=== PATIENT | male | born 1990 | race Caucasian/White ===

== ENCOUNTER 2019-11-27 17:40 | Emergency (ER) | payer OTHER ==
[2019-11-27 17:50] VITALS: BP 130/66; PULSE 76
[2019-11-27] MEDS ORDERED: Orphenadrine 100 MG Tab.ER PO ONE (18:02)
[2019-11-27] MEDS ORDERED: Ketorolac 30 MG/ML SDV IM ONE (18:02)
--- NOTE | 2019-11-27 18:07 | EDM.PDOC ---
ED HPI GENERAL MEDICAL PROBLEM - General Chief Complaint: Back Pain or Injury Stated Complaint: BACK PAIN Time Seen by Provider: 11/27/19 17:44 Source of Information: Reports: Patient, RN Notes Reviewed History Limitations: Reports: No Limitations - History of Present Illness INITIAL COMMENTS - FREE TEXT/NARRATIVE: Patient is a 28-year-old male who presents to the ED for the evaluation of his lower back pain. He notes this to be in his right lower back, and this started at around 10 AM this morning. 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 He states that this is a sharp shooting pain, sometimes shoots down his right leg, but mostly feels like a stiffness in his right lower back. He notes it is hard to bend over, and twist without much pain. He did take 2 tablets of Motrin roughly 3 to 4 hours ago, and it seemed to help a little bit. He is not known to have any prior back injuries. Further denies any urinary symptoms like dysuria, frequency, urgency or incontinence, and has no numbness or tingling in his legs. He denies any other sick-like symptoms, fever/chills, cough/shortness of breath, nausea/vomiting/diarrhea. Right Lower Back Pain Score (Numeric/FACES): 5 - Related Data Allergies Allergy/AdvReac Type Severity Reaction Status Date / Time peanut Allergy Cannot Verified 11/27/19 17:50 Remember strawberry Allergy Cannot Verified 11/27/19 17:50 Remember Home Meds: Home Meds Ketorolac [Toradol] 10 mg PO TID PRN #9 tab 11/27/19 [Rx] Orphenadrine [Norflex] 100 mg PO BID PRN #20 tab 11/27/19 [Rx] Past Medical History Respiratory History: Reports: Asthma - Past Surgical History GI Surgical History: Reports: Hernia, Inguinal Social & Family History - Tobacco Use Smoking Status *Q: Never Smoker Second Hand Smoke Exposure: No - Caffeine Use Caffeine Use: Reports: None - Recreational Drug Use Recreational Drug Use: No ED ROS GENERAL - Review of Systems Review Of Systems: Comprehensive ROS is negative, except as noted in HPI. ED EXAM,LOWER BACK PAIN/INJURY - Physical Exam Exam: See Below Exam Limited By: No Limitations General Appearance: Alert, WD/WN, No Apparent Distress Respiratory/Chest: No Respiratory Distress, Lungs Clear, Normal Breath Sounds, No Accessory Muscle Use, Chest Non-Tender Cardiovascular: Normal Peripheral Pulses, Regular Rate, Rhythm, No Murmur Back Exam: Normal Inspection, Decreased Range of Motion (slightly decreased d/t pain and stiffness, there is mild muscle spasm noted to right lower back just superior to the iliac crest) Extremities: Normal Inspection, Normal Range of Motion, Normal Capillary Refill Neurological: Alert, Normal Mood/Affect, Normal Dorsiflexion, Normal Plantar Flexion, No Motor/Sensory Deficits, Straight Leg Raise (R), Other (pt has slightly sitffened gait, but otherwise walks okay.). No: Straight Leg Raise (L), Saddle Anesthesia Psychiatric: Normal Affect, Normal Mood Skin Exam: Warm, Dry, Intact, Normal Color, No Rash Course - Vital Signs Last Recorded V/S: Last Vital Signs Temp 98.1 F 11/27/19 17:47 Pulse 76 11/27/19 17:47 Resp 16 11/27/19 17:47 BP 130/66 11/27/19 17:47 Pulse Ox 100 11/27/19 17:47 - Orders/Labs/Meds Meds: Medications Discontinued Medications Generic Name Dose Route Start Last Admin Trade Name Sophia PRN Reason Stop Dose Admin Ketorolac Tromethamine 60 mg 11/27/19 18:02 11/27/19 18:07 Toradol IM 11/27/19 18:03 60 mg ONETIME ONE Administration Orphenadrine Citrate 100 mg 11/27/19 18:02 11/27/19 18:07 Norflex PO 11/27/19 18:03 100 mg ONETIME ONE Administration - Re-Assessments/Exams Free Text/Narrative Re-Assessment/Exam: 11/27/19 18:07 Patient presents to the ED for evaluation of his lower back pain. He will be given an injection of Toradol, and trialed on Norflex to see if this helps relieve some of his pain. We will likely send him with a few days of Toradol, and some Norflex, and have him switch to ibuprofen after the Toradol is finished. 11/27/19 18:31 Patient did receive some relief from the medications given. He will be discharged home with general recommendations and a few prescriptions. Departure - Departure Time of Disposition: 18:32 Disposition: Home, Self-Care 01 Condition: Good Clinical Impression: Low back pain Qualifiers: Chronicity: acute Back pain laterality: right Sciatica presence: without sciatica Qualified Code(s): M54.5 - Low back pain - Discharge Information *PRESCRIPTION DRUG MONITORING PROGRAM REVIEWED*: No *COPY OF PRESCRIPTION DRUG MONITORING REPORT IN PATIENT MONICA: No Prescriptions: Orphenadrine [Norflex] 100 mg PO BID PRN #20 tab PRN Reason: Spasms Ketorolac [Toradol] 10 mg PO TID PRN #9 tab PRN Reason: Pain Instructions: Back Exercises, [id number] Referrals: PCP,None [Primary Care Provider] - Forms: ED Department Discharge Additional Instructions: You have been evaluated in the ED for your low back pain. Please use ice/heat as tolerated to the affected area. You were given a prescription for Norflex, please take 1 tab 2 times a day as needed for further muscle spasms. You were given a prescription for a few tablets of Toradol (ketorolac) please take as directed, until gone, and then switch to ibuprofen or Tylenol. You may take Tylenol 500 mg or ibuprofen 600mg q6 hrs for pain relief. Please do so until you have a tolerable level of pain with activity. Do not exceed 4000mg Tylenol or 3200mg ibuprofen in a 24 hour time period. You may want to try chiropractic services, or heating pads as well to help provide further relief from the pain. Please return to ED if your symptoms should change or worsen. Sepsis Event Note (ED) - Evaluation Sepsis Screening Result: No Definite Risk - Focused Exam Vital Signs: Vital Signs Temp Pulse Resp BP Pulse Ox 11/27/19 17:47 98.1 F 76 16 130/66 100
== END 2019-11-27 18:40 | disposition home or self-care (01) ==
LOC: JD.ED 17:40
DX: M62.830 Muscle spasm of back (principal); J45.909 Unspecified asthma, uncomplicated; Z91.018 Allergy to other foods; Z91.010 Allergy to peanuts
CPT/HCPCS: 96372; 99283; A9270; J1885

== ENCOUNTER 2021-01-22 07:08 | Emergency (ER) | payer OTHER ==
[2021-01-22 07:27] VITALS: BP 138/91; PULSE 79
--- NOTE | 2021-01-22 07:31 | EDM.PDOC ---
ED HPI GENERAL MEDICAL PROBLEM - General Chief Complaint: Genitourinary Problem Stated Complaint: POST SURGERY PAIN Time Seen by Provider: 01/22/21 07:29 - History of Present Illness INITIAL COMMENTS - FREE TEXT/NARRATIVE: 30-year-old male presents the emergency room with right testicular and groin pain. This pain started sometime yesterday progressively getting worse. Patient has a history of having surgery to the scrotum and testicle within the last year for a undescended testes. Patient denies any fevers or chills. He has had no burning or frequency with urination. Patient is not aware of any triggering event. He is complaining of pretty significant pain at this time. Patient is not on any routine medications at this time. He is otherwise healthy other than some food allergies and had a reaction to a pain medication he thinks was Dilaudid. The patient has tolerated morphine in the past. Groin Pain Score (Numeric/FACES): 5 - Related Data Allergies Allergy/AdvReac Type Severity Reaction Status Date / Time peanut Allergy Severe Cannot Verified 01/22/21 07:27 Remember strawberry Allergy Severe Cannot Verified 01/22/21 07:27 Remember Home Meds: Home Meds Hydrocodone/Acetaminophen [HYDROcodone-Acetaminophen 5-325 MG] 1 - 2 each PO Q6H PRN #14 tab 01/22/21 [Rx] Naproxen [Naprosyn] 500 mg PO BID #20 tab 01/22/21 [Rx] Sulfamethoxazole/Trimethoprim [Bactrim Ds Tablet] 1 each PO BID #20 tablet 01/22/21 [Rx] Past Medical History Respiratory History: Reports: Asthma - Past Surgical History GI Surgical History: Reports: Hernia, Inguinal Social & Family History - Caffeine Use Caffeine Use: Reports: None ED ROS GENERAL - Review of Systems Review Of Systems: See Below Constitutional: Reports: No Symptoms Respiratory: Reports: No Symptoms Cardiovascular: Reports: No Symptoms GI/Abdominal: Reports: Abdominal Pain (Lower abdominal pain right) : Reports: Other (See history of present illness) Musculoskeletal: Reports: No Symptoms Skin: Reports: No Symptoms ED EXAM, GENERAL - Physical Exam Exam: See Below Exam Limited By: No Limitations General Appearance: Alert, Moderate Distress (From the pain) Head: Atraumatic, Normocephalic Neck: Normal Inspection, Supple, Non-Tender, Full Range of Motion Respiratory/Chest: No Respiratory Distress, Lungs Clear, Normal Breath Sounds Cardiovascular: Regular Rate, Rhythm, No Edema, No Murmur GI/Abdominal: Normal Bowel Sounds, Soft, Non-Tender, Other (He has pain in the right inguinal area but this does not extend into the abdomen.). No: Guarding, Rigid, Rebound (Male) Exam: Testicular Tenderness (R), Other (Swelling believed to be present mild erythema) Back Exam: Normal Inspection. No: CVA Tenderness (L), CVA Tenderness (R) Extremities: Normal Inspection, No Pedal Edema Neurological: Alert, Oriented, Normal Cognition Course - Vital Signs Last Recorded V/S: Last Vital Signs Temp 36.3 C 01/22/21 07:19 Pulse 79 01/22/21 07:19 Resp 18 01/22/21 07:19 BP 138/91 H 01/22/21 07:19 Pulse Ox 100 01/22/21 07:19 - Orders/Labs/Meds Orders: Active Orders 24 hr Category Date Time Status Lactated Ringers [Ringers, Lactated] 1,000 ml Med 01/22/21 07:45 Active IV ASDIRECTED Medication Orders Lactated Ringer's (Ringers, Lactated) 1,000 mls @ 125 mls/hr IV ASDIRECTED OBED Last Admin: 01/22/21 07:49 Dose: 125 mls/hr Documented by: EDILBERTO Labs: Laboratory Tests 01/22/21 01/22/21 01/22/21 Range/Units 07:40 07:45 07:45 WBC 6.31 (4.23-9.07) K/mm3 RBC 4.81 (4.63-6.08) M/mm3 Hgb 14.0 (13.7-17.5) gm/dl Hct 41.7 (40.1-51.0) % MCV 86.7 (79.0-92.2) fl MCH 29.1 (25.7-32.2) pg MCHC 33.6 (32.2-35.5) g/dl RDW Std Deviation 40.7 (35.1-43.9) fL Plt Count 208 (163-337) K/mm3 MPV 10.8 (9.4-12.3) fl Neut % (Auto) 60.8 (34.0-67.9) % Lymph % (Auto) 29.5 (21.8-53.1) % [place] % (Auto) 4.9 L (5.3-12.2) % Eos % (Auto) 4.1 (0.8-7.0) Baso % (Auto) 0.5 (0.1-1.2) % Neut # (Auto) 3.84 (1.78-5.38) K/mm3 Lymph # (Auto) 1.86 (1.32-3.57) K/mm3 [place] # (Auto) 0.31 (0.30-0.82) K/mm3 Eos # (Auto) 0.26 (0.04-0.54) K/mm3 Baso # (Auto) 0.03 (0.01-0.08) K/mm3 Sodium 141 (136-145) mEq/L Potassium 3.8 (3.5-5.1) mEq/L Chloride 106 (98-107) mEq/L Carbon Dioxide 27 (21-32) mEq/L Anion Gap 11.8 (5-15) BUN 19 H (7-18) mg/dL Creatinine 1.1 (0.7-1.3) mg/dL Est Cr Clr Drug Dosing 81.15 mL/min Estimated GFR (MDRD) > 60 (>60) mL/min BUN/Creatinine Ratio 17.3 (14-18) Glucose 109 H (70-99) mg/dL Calcium 8.7 (8.5-10.1) mg/dL Total Bilirubin 0.2 (0.2-1.0) mg/dL AST 18 (15-37) U/L ALT 31 (16-63) U/L Alkaline Phosphatase 49 (46-116) U/L Total Protein 7.2 (6.4-8.2) g/dl Albumin 4.1 (3.4-5.0) g/dl Globulin 3.1 gm/dL Albumin/Globulin Ratio 1.3 (1-2) Urine Color Yellow (Yellow) Urine Appearance Clear (Clear) Urine pH 7.0 (5.0-8.0) Ur Specific [place] > or = 1.030 (1.005-1.030) Urine Protein Negative (Negative) Urine Glucose (UA) Negative (Negative) Urine Ketones Negative (Negative) Urine Occult Blood Negative (Negative) Urine Nitrite Negative (Negative) Urine Bilirubin Negative (Negative) Urine Urobilinogen 0.2 (0.2-1.0) Ur Leukocyte Esterase Negative (Negative) Meds: Medications Generic Name Dose Route Start Last Admin Trade Name Sophia PRN Reason Stop Dose Admin Lactated Ringer's 1,000 mls @ 125 mls/hr 01/22/21 07:45 01/22/21 07:49 Ringers, Lactated IV 125 mls/hr ASDIRECTED OBED Administration Discontinued Medications Generic Name Dose Route Start Last Admin Trade Name Fredeandra PRN Reason Stop Dose Admin Ketorolac Tromethamine 15 mg 01/22/21 10:49 Ketorolac 15 Mg/Ml Sdv IVPUSH 01/22/21 10:50 ONETIME ONE Morphine Sulfate 4 mg 01/22/21 07:42 01/22/21 07:49 Morphine 4 Mg/Ml Syringe IVPUSH 01/22/21 07:43 4 mg ONETIME ONE Administration - Re-Assessments/Exams Free Text/Narrative Re-Assessment/Exam: 01/22/21 10:52 Nondiagnostic including a urinalysis. Testicular ultrasound shows a small amount of fluid around both testes. I discussed the situation with Dr. Cook. His urologist at [facility] in [place] his recommendation was nonsteroidals 10-day course of Bactrim. And to follow-up early next week if needed. At this point I will give the patient a 15 mg of Toradol. We will give him prescription for Naprosyn to start this evening [place] chest a few to use as needed and started on Bactrim. Limit activity for the next couple of days. Departure - Departure Time of Disposition: 10:54 Disposition: Home, Self-Care 01 Clinical Impression: Testicular pain, right - Discharge Information Referrals: PCP,None [Primary Care Provider] - Forms: ED Department Discharge Additional Instructions: Return to the emergency room with any questions problems or worsening symptoms. You been started on 3 medications the first 1 is hydrocodone use only if absolutely necessary for the pain take 1 or 2 every 6 hours. If using this medication allow 12 hours after taking it before driving or returning to work. You have been started on naproxen take 1 twice daily with food. This will help with the swelling. You been started on Bactrim this is an antibiotic this also was taken twice daily for 10 days. All your prescriptions have been [facility] electronically [facility]. If needed follow-up with Dr. Cook early this next week Sepsis Event Note (ED) - Evaluation Sepsis Screening Result: No Definite Risk - Focused Exam Vital Signs: Vital Signs Temp Pulse Resp BP Pulse Ox 01/22/21 07:19 36.3 C 79 18 138/91 H 100 - My Orders Last 24 Hours: My Active Orders 01/22/21 07:45 Lactated Ringers [Ringers, Lactated] 1,000 ml IV ASDIRECTED - Assessment/Plan Last 24 Hours: My Active Orders 01/22/21 07:45 Lactated Ringers [Ringers, Lactated] 1,000 ml IV ASDIRECTED
[2021-01-22] MEDS ORDERED: Morphine 4 MG/ML Syringe IVPUSH ONE (07:42)
[2021-01-22] MEDS ORDERED: Lactated Ringers 1,000 ML IV SCH (07:45)
--- NOTE | 2021-01-22 09:43 | US ---
Testicular ultrasound: Multiple real-time images of the testicles were obtained. Comparison: No prior testicular ultrasound is available. Testicles have a homogeneous ultrasound appearance. No intratesticular abnormality is seen. Arterial and venous blood flow are seen within the testicles. Small amount of fluid is seen around the right and left testicles. No epididymal abnormalities are seen. Additional images were obtained of the right inguinal region which show no discrete cyst or solid abnormality. Impression: 1. Minimal fluid around both testicles. 2. Testicular ultrasound is otherwise unremarkable. Diagnostic code #2
[2021-01-22] MEDS ORDERED: Ketorolac 15 MG/ML SDV IVPUSH ONE (10:49)
== END 2021-01-22 11:15 | disposition home or self-care (01) ==
LOC: JD.ED 07:08
DX: N50.811 Right testicular pain (principal); J45.909 Unspecified asthma, uncomplicated; Z91.010 Allergy to peanuts; Z91.018 Allergy to other foods
CPT/HCPCS: 36415; 76870; 80053; 81003; 85025; 93975; 96374; 96375; 99284; J1885; J2270; J7120

== ENCOUNTER 2022-12-21 20:11 | Emergency (ER) | payer BC, OTHER ==
[2022-12-21] MEDS ORDERED: Diphtheria,Pertussis(Acell),Tetanus Vaccine 0.5 ML Syringe IM ONE (20:38)
[2022-12-22 05:37] VITALS: BP 115/74; PULSE 72
== END 2022-12-21 21:25 | disposition home or self-care (01) ==
LOC: JD.ED 20:11
DX: S61.012A Laceration without foreign body of left thumb without damage to nail, initial encounter (principal); J45.909 Unspecified asthma, uncomplicated; Z87.891 Personal history of nicotine dependence; Z91.018 Allergy to other foods; Z23 Encounter for immunization; W45.8XXA Other foreign body or object entering through skin, initial encounter
CPT/HCPCS: 12001; 90471; 90715; 99282; 99282-25

== ENCOUNTER 2023-10-20 20:51 | Emergency (ER) | payer BC ==
[2023-10-20 21:01] VITALS: BP 122/83; PULSE 80
[2023-10-20] MEDS: Ibuprofen 600 MG Tab PO ONE (21:51)
== END 2023-10-20 21:51 | disposition home or self-care (01) ==
LOC: JD.ED 20:51
DX: S69.91XA Unspecified injury of right wrist, hand and finger(s), initial encounter (principal); Z91.010 Allergy to peanuts; Z91.018 Allergy to other foods; W22.8XXA Striking against or struck by other objects, initial encounter
CPT/HCPCS: 73140; 99283; A9270; 99282

== ENCOUNTER 2024-04-17 16:03 | Emergency (ER) | payer BC ==
[2024-04-17] MEDS ORDERED: EPINEPHrine 1 MG/ML SDV ONE (16:37)
[2024-04-17] MEDS: EPINEPHrine 1 MG/ML SDV IM ONE (16:41)
[2024-04-17 17:06] VITALS: BP 127/75; PULSE 104
[2024-04-17] MEDS: Ondansetron 4 MG/2 ML SDV IVPUSH ONE (18:43)
[2024-04-17] MEDS: diphenhydrAMINE 50 MG/ML SDV IV ONE (18:43)
== END 2024-04-17 20:04 | disposition home or self-care (01) ==
LOC: JD.ED 16:03
DX: R11.10 Vomiting, unspecified (principal); T78.1XXA Other adverse food reactions, not elsewhere classified, initial encounter; J45.909 Unspecified asthma, uncomplicated; Z88.8 Allergy status to other drugs, medicaments and biological substances; Z91.010 Allergy to peanuts; Z91.018 Allergy to other foods; Z79.899 Other long term (current) drug therapy
CPT/HCPCS: 96372; 96374; 96375; 99283; J0171; J1200; J2405